=== PATIENT | male | born 1985 | race African-American/Black ===

== ENCOUNTER 2018-11-26 13:26 | Emergency (ER) | payer MEDICAID ==
[~2018-11-26] VITALS: Ht 180.3 cm; Wt 88.0 kg
[2018-11-26] MEDS ORDERED: IBUPROFEN 600MG TABLET PO ONE (14:15)
[2018-11-26] MEDS ORDERED: HYDROCODONE/ACETAMINOPHEN 5/325MG TABLET PO ONE (14:15)
[2018-11-26 16:58] VITALS: BP 122/80
== END 2018-11-26 17:09 | disposition home or self-care (01) ==
LOC: ER 13:26
DX: S63.501A Unspecified sprain of right wrist, initial encounter (principal); S00.83XA Contusion of other part of head, initial encounter; V49.88XA Car occupant (driver) (passenger) injured in other specified transport accidents, initial encounter; W22.19XA Striking against or struck by other automobile airbag, initial encounter; Y93.89 Activity, other specified; Y92.89 Other specified places as the place of occurrence of the external cause; Y99.8 Other external cause status
CPT/HCPCS: 29125; 73110; 99284